=== PATIENT | male | born 1975 | race Asian ===

== ENCOUNTER 2017-12-07 09:26 | Emergency (ER) | payer SELFPAY ==
[~2017-12-07] VITALS: Ht 165.1 cm; Wt 68.9 kg
[2017-12-07 10:47] VITALS: BP 121/74
[2017-12-07] MEDS ORDERED: IBUPROFEN600 MG ORAL (10:54)
[2017-12-07 10:59] VITALS: BP 121/74
--- NOTE | 2017-12-07 11:56 | Diagnostic Imaging Report ---
Indication: Pain Findings: 3 views of the right elbow were obtained. No acute fractures, malalignment, erosions or periostitis are identified. Bone mineralization is within normal limits. Soft tissues are unremarkable. Impression: Negative examination of the elbow.
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
== END 2017-12-07 10:59 | disposition home or self-care (01) ==
LOC: EMR 10:15
DX: S50.01XA Contusion of right elbow, initial encounter (principal); V43.52XA Car driver injured in collision with other type car in traffic accident, initial encounter; Y92.410 Unspecified street and highway as the place of occurrence of the external cause
CPT/HCPCS: 99283